=== PATIENT | female | born 1990 | race African-American/Black ===

== ENCOUNTER 2021-02-03 12:49 | Emergency (ER) | payer OTHER ==
[~2021-02-03] VITALS: Ht 165.1 cm; Wt 61.7 kg
[2021-02-03] MEDS ORDERED: PANTOPRAZOLE 40 MG/10 ML VIAL INJ IV STA (13:00)
[2021-02-03] MEDS ORDERED: PROCHLORPERAZINE EDISYLATE 5 MG/ML 2ML VIAL IV ONE (13:00)
[2021-02-03 13:56] LABS: Albumin 4.9 g/dL (3.4-5.0); Calcium 10.4 mg/dL (8.5-10.1)
[2021-02-03 13:56] LABS: Amphetamine Screen, Urine NEGATIVE (NEGATIVE); Barbiturate Scree,Urine NEGATIVE (NEGATIVE); Cannabinoid Screen, Urine POSITIVE (NEGATIVE)
[2021-02-03 13:59] LABS: BUN/Creatinine Ratio 24.3; Bilirubin, Total 1.1 mg/dL (0.2-1.0)
[2021-02-03 14:03] LABS: Benzodiazephine Screen, Urine NEGATIVE (NEGATIVE); Cocaine Screen, Urine NEGATIVE (NEGATIVE); Opiate Scree,Urine NEGATIVE (NEGATIVE); Phencyclidine Screen, Urine NEGATIVE (NEGATIVE)
[2021-02-03 14:25] LABS: Urine Bacteria NONE SEEN /hpf (None Seen); Urine Blood 2+ /uL (Negative); Urine Hyaline Cast FEW /lpf (0 - 2); Urine Specific Gravity 1.015 (1.001-1.035); Urine WBC 4 /hpf (0 - 5)
[2021-02-03 14:47] LABS: Potassium 2.9 mmol/L (3.5-5.1)
[2021-02-03 14:51] LABS: Basophils # (auto) 0.1 10 ^3/uL (0-0.2); Basophils % (auto) 0.4 % (0.0-2.0); Eosinophils # (auto) 0.1 10 ^3/uL (0-0.8); Eosinophils % (auto) 0.6 % (0.0-7.0); Hematocrit 50.3 % (36.0-46.0); Hemoglobin 17.7 g/dL (12.2-16.2); Lymphocytes # (auto) 2.2 10 ^3/uL (0.4-5.4); Mean Corpuscular Hemoglobin 29.8 pg (28.0-32.0); Mean Corpuscular Hgb Conc. 35.3 g/dL (32.0-36.0); Mean Corpuscular Volume 84.3 fL (80.0-100.0); Monocytes # (auto) 0.9 10 ^3/uL (0-1.3); Monocytes % (auto) 8.2 % (0.0-12.0); Neutrophils # (auto) 8.3 10 ^3/uL (1.6-8.6); Neutrophils % (auto) 71.8 % (37.0-80.0); Nucleated Red Blood Cells % 0.3 %; Platelet Count (auto) 263 10^3/uL (140-450); Red Blood Cells 5.96 10^6/uL (4.0-5.20); Red Cell Distribution Width 13.5 % (11.8-14.3); White Blood Cell 11.6 10^3/uL (4.4-10.8)
[2021-02-03] MEDS ORDERED: POTASSIUM CHL 20MEQ/100ML 100 ML IV ONE (15:15)
[2021-02-03] MEDS ORDERED: POTASSIUM CHL 20 Meq TABLET PO ONE (15:15)
[2021-02-03 16:45] VITALS: BP 133/97
== END 2021-02-03 18:08 | disposition home or self-care (01) ==
LOC: ER 12:49
DX: K59.00 Constipation, unspecified (principal); F12.188 Cannabis abuse with other cannabis-induced disorder; E87.6 Hypokalemia; D72.829 Elevated white blood cell count, unspecified; F12.10 Cannabis abuse, uncomplicated; I10 Essential (primary) hypertension; Z32.02 Encounter for pregnancy test, result negative
CPT/HCPCS: 36415; 80053; 80307; 81001; 81025; 83690; 85025; 85049; 96365; 96366; 96375; 99284; C9113; J0780; J3480; J7030